=== PATIENT | female | born 1970 | race Caucasian/White ===

== ENCOUNTER 2021-02-04 13:45 | Emergency (ER) | payer BC, SELFPAY ==
[2021-02-04 13:46] VITALS: BP 156/113; PULSE 89; RESP 14; TEMP 35.9; O2SAT 97; BMI 36.3
[2021-02-04 14:04] VITALS: RESP 16
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
--- NOTE | 2021-02-04 14:41 | EKG12_ITS ---
Test Reason : MENTAL HEALTH Blood Pressure : / mmHG Vent. Rate : 054 BPM Atrial Rate : 054 BPM P-R Int : 156 ms QRS Dur : 090 ms QT Int : 418 ms P-R-T Axes : 029 034 020 degrees QTc Int : 396 ms Sinus bradycardia Otherwise normal ECG Confirmed by MARIA D PORRAS, IRENA ([id number]), film or videotape editor BALJEET ZIMMERMAN ([id number]) on 02/06/2021 12:37:21 PM Referred By: PL Confirmed By:IRENA KILLIAN MD
[2021-02-04 15:37] LABS: Absolute Lymphocyte Count 1.39 X10^3/uL (0.83-4.51); Basophil# 0.03 X10^3/uL; Basophil% 0.4 % (0-1); Eosinophil# 0.04 X10^3/uL; Eosinophils% 0.6 % (0-5); Hematocrit 41.9 % (37-47); Hemoglobin 14.3 g/dL (12.0-15.0); Lymphocyte # 1.39 X10^3/ul (0.83-4.51); Lymphocyte % 20.7 % (19-41); Mean Corp Hgb Conc 34.1 g/dL (32-36); Mean Corpuscular Hgb 32.9 pg (27.0-32.0); Mean Corpuscular Volume 96.3 fL (81-99); Mean Platelet Vol. 10.4 fl (6.2-12.0); Monocyte# 0.23 X10^3/uL; Monocyte% 3.4 % (0-10); NRBC Flagged by Analyzer 0 % (0-5); Neutrophil # 5.01 X10^3/uL (2.7-7.7); Neutrophil % 74.6 % (47-70); Platelet Count 221 K/mm3 (150-450); RBC Distribution Width SD 42.5 fl (35.1-43.9); Red Blood Count 4.35 M/mm3 (4.2-5.4); White Blood Count 6.7 K/mm3 (4.4-11.0)
[2021-02-04 15:47] LABS: Amphetamine Urine VISTA NEGATIVE (<1000 ng/mL); Barbiturate Urine VISTA NEGATIVE (< 200 ng/mL); Benzodiazepine Urine VISTA POSITIVE (< 200 ng/mL); Cocaine Urine VISTA NEGATIVE (< 300 ng/mL); Ecstacy Urine VISTA POSITIVE (< 500 ng/mL); Methadone Urine VISTA NEGATIVE (< 300 ng/mL); PCP Urine VISTA NEGATIVE (< 25 ng/mL); THC Urine VISTA POSITIVE (< 50 ng/mL); Vista UDS pH Range 5
[2021-02-04 15:53] LABS: Anion Gap 6 (5-15); BUN 14 mg/dL (7-18); Calcium,Total 8.8 mg/dL (8.5-10.1); Chloride 109 mmol/L (98-107); Creatinine, Serum 0.67 mg/dL (0.55-1.02); EST Glomerular Filtration Rate 99 mL/min (>60); Est Glom Filt Rate - Afr Amer 120 mL/min (>60); Estimated Creatinine Clearance 85.78 ml/min; Glucose 102 mg/dL (74-106); Potassium 3.6 mmol/L (3.5-5.1); Sodium Level 141 mmol/L (136-145)
[2021-02-04 15:55] LABS: Alcohol, Blood (Medical)-Serum < 3.0 mg/dL
[2021-02-04 16:01] LABS: Internal QC Validated? YES +Cl - CLEAR BKGD; Pregnancy, Serum, hCG Quali. NEGATIVE Negative
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
--- NOTE | 2021-02-04 17:06 | CM.ED ---
SOCIAL WORK Referral faxed to [facility]. Radha Barnes, CARD STRIPPER, RADIO MACHINIST
--- NOTE | 2021-02-04 17:09 | ED.RN ---
UPON ENTERING PT'S ROOM, PT HAS BECOME VERY UPSET ABOUT POTENTIALLY BEING TRANSFERRED TO A PSYCHIATRIC HOSPITAL. PT STATES I NEED TO GO HOME, I WON'T HURT MYSELF OR ANYONE ELSE AND I WILL FOLLOW UP WITH MY DOCTOR SOON POSSIBLE. DISCUSSED WITH SW AND ED PHYSICIAN. SW AT BEDSIDE.
[2021-02-04] MEDS: LORazepam 1 MG Tablet PO (17:27)
[2021-02-04 17:29] VITALS: BP 168/74; PULSE 61; RESP 16; O2SAT 98
--- NOTE | 2021-02-04 18:32 | CM.ED ---
SOCIAL WORK Call to [facility] to check on status of referral. Awaiting a call back from intake at this time. Radha Barnes, DIE SINKING MACHINE OPERATOR, PROCESS PLANT OPERATOR
--- NOTE | 2021-02-04 19:19 | CM.ED ---
SOCIAL WORK Call to [facility] regarding referral, spoke with Laisha who reports Ericka with intake is on the phone with physician at this time and will be calling this worker back. Radha Barnes, COLLECTION TECHNICIAN, SENIOR PRODUCT DEVELOPMENT SCIENTIST
[2021-02-04 19:37] VITALS: RESP 16
--- NOTE | 2021-02-04 19:46 | CM.ED ---
SOCIAL WORK Patient has been accepted to [facility] by Dr. Whitten. Ericka with [facility] set up transport for a 8:30p pickler helper. Nurse to call report to [phone]. Patient and staff olivia. Radha Barnes MSW, ELIGIBILITY COUNSELOR
== END 2021-02-04 21:04 ==
LOC: ED 15:25
PROVIDERS: Emergency Provider Emergency Medicine; PCP Family Medicine
DX: F32.9 Major depressive disorder, single episode, unspecified (principal); R45.851 Suicidal ideations; E07.9 Disorder of thyroid, unspecified; F41.9 Anxiety disorder, unspecified; Z79.899 Other long term (current) drug therapy; Z87.891 Personal history of nicotine dependence
CPT/HCPCS: 80048; 80307; 82077; 84443; 84703; 85025; 87426; 93005; 99285